=== PATIENT | male | born 1965 | race Caucasian/White ===

== ENCOUNTER 2020-10-18 14:41 | Outpatient (REF) | payer MEDICAID, SELFPAY | END 2020-10-18 14:42 | disposition home or self-care (01) | LOC: HO.LAB 14:41 | PROVIDERS: Visit Provider Internal Medicine | DX: Z20.828 Contact with and (suspected) exposure to other viral communicable diseases (principal) | CPT/HCPCS: C9803; U0003 ==

== ENCOUNTER 2023-02-04 10:04 | Emergency (ER) | payer MEDICAID, SELFPAY ==
[2023-02-04 10:08] VITALS: BP 133/74; PULSE 80; RESP 18; TEMP 36.8; O2SAT 96; BMI 28.8
--- NOTE | 2023-02-04 11:20 | ED_ITS ---
HPI - Abdominal Pain General Chief Complaint: Abdominal Pain Stated Complaint: lower abd pain Time Seen by Provider: 02/04/23 11:19 Source: patient Mode of arrival: ambulatory Limitations: no limitations History of Present Illness HPI narrative: 57 yo male with history of right sided inguinal hernia presents to the ER for evaluation of 1 week of increased pain in his right inguinal area. He states he feels a large bulge come out of his stomach when he stands up. He can lay down and push it back in. He feels better when he has his hand over the area to keep it in. He denies any overlying skin changes. No N/V/D. He has never seen a surgeon for this. His doctor years ago told him about it and he states it wasn't really bothering him until last week. MD elicited complaint: abdominal pain Pertinent past history: other (hernia) Onset (ago): week(s) (1) Pain Consistency: intermittent Location: RLQ Severity: moderate Quality: aching Radiation: other (groin) Migration to: no migration Exacerbating factors: other (standing, coughing, lifting) Relieving factors: rest and other (laying down) Associated symptoms: denies other symptoms Related Data Allergies Allergy/AdvReac Type Severity Reaction Status Date / Time No Known Allergies Allergy Unverified 07/28/20 16:25 Review of Systems Review of Systems Yes all other systems are reviewed and are negative Physical Exam ED Vital Signs: Vital Signs - 24 hr 02/04/23 10:08 Temperature 98.3 F Pulse Rate 80 Respiratory Rate 18 Blood Pressure 133/74 Pulse Oximetry 96 Oxygen Delivery Method Room Air BMI result Body Mass Index 28.8 Appearance: Alert. Oriented X3. No acute distress. Eyes: Pupils equal, round and reactive to light. ENT: Pharynx normal. Neck: Normal inspection. Neck supple. CVS: Normal heart rate and rhythm. Pulses normal. Respiratory: No respiratory distress. Breath sounds normal. Abdomen: Soft and nontender. +BS x4 when laying flat. palpable defect in the right inguinal area. no overlying skin changes. when standing there is a large mass in the right inguinal area. easily reducible Skin: Skin warm and dry. Normal skin color. Normal skin turgor. No rashes. Extremities: No lower extremity edema. Neuro: Oriented X 3. No motor deficit. No sensory deficit. Medical Decision Making Medical Decision Making MDM Narrative: 57-year-old male presents to the ER for evaluation of a right inguinal hernia. The hernia is easily reducible. No evidence of obstruction, strangulation, or incarceration. PE and recommendations c/w patient - he will require outpatient surgery evaluation for elective surgical repair. No emergent need today. patient disappointed as he wanted to get the surgery done today. Explained how the process works along with return precautions. recommended compression shorts, no lifting or strenuous activity. does not want meds. stable for d/c home. Differential Diagnosis Differential Diagnoses: The differential diagnosis associated with the pres entation includes Right inguinal hernia no evidence of incarcerated hernia, strangulated hernia, bowel obstruction. External Record Review External record reviewed: Prior outpatient labs Tests considered The following testing was considered but not selected: CT scan/US of the hernia was considered but not indicated today Prescription Management I considered prescription management with: Pain Medication pt declined Discharge Plan Discharge Clinical Impression: Inguinal hernia of right side without obstruction or gangrene Patient Disposition: Home, Self-Care Instructions: Inguinal Hernia (ED), Inguinal Hernia Repair (DC) Additional Instructions: Call the provided Surgery Office number to arrange a referral for elective hernia repair. Rest. No strenuous activity. No lifting Wear tight compression shorts. If you develop vomiting, inability to reduce the hernia yourself, call your doctor or come back to the ER for further evaluation. If you develop new or worsening symptoms call 911 or come back to the ER for further evaluation. Referrals: [facility] [place] General Surgeons [Provider Group] (right inguinal hernia) Stand Alone Forms: Work/School Release Interventions: ED Discharge Assessment Last Done: 02/04/23 11:58 Discharge Date/Time: 02/04/23 11:59
== END 2023-02-04 11:59 | disposition home or self-care (01) ==
PROVIDERS: Emergency Provider Student in an Organized Health Care Education/Training Program
DX: K40.90 Unilateral inguinal hernia, without obstruction or gangrene, not specified as recurrent (principal)
CPT/HCPCS: 99282

== ENCOUNTER 2023-02-04 12:45 | Emergency (ER) | payer MEDICAID, SELFPAY ==
--- NOTE | ~2023-02-04 | XR_ITS ---
EXAMINATION: XR CHEST CLINICAL INFORMATION: Abdominal pain. COMPARISON: None available. TECHNIQUE: 2 views of the chest were obtained. FINDINGS: No significant abnormality is noted involving the heart, lungs, mediastinum, bony thorax or soft tissues. XR/XR chest 2V IMPRESSION: Unremarkable examination.
--- NOTE | ~2023-02-04 | CT_ITS ---
EXAMINATION: CT ABDOMEN AND PELVIS WITH CONTRAST CLINICAL INFORMATION: Inguinal hernia pain COMPARISON: None available. TECHNIQUE: Multidetector volumetric images were obtained from the superior aspect of the liver through the pubic symphysis following administration 85 mL of Omnipaque 350 intravenous contrast. Sagittal and coronal reformatted images were obtained on the technologist's workstation. Oral contrast: No This CT examination was performed using dose optimization techniques as appropriate, variously including the following: *Automated exposure control *Adjustment of mA and/or kV according to patient size (this includes techniques or standardized protocols for targeted exams where dose is matched to indication/reason for exam; i.e. extremities or head) *Use of iterative reconstruction technique DLP: 602 mGy-cm FINDINGS: Visualized lung bases demonstrate mild dependent atelectasis. The liver demonstrates normal size, contour and attenuation. A few sub-5 mm hepatic hypodensities are too small to accurately characterize. The gallbladder is normal in appearance. The pancreas, spleen and adrenal glands are unremarkable. Symmetrically enhancing kidneys. No hydronephrosis of either kidney. 6 mm hypodense focus within the midpole of the right kidney is too small to accurately characterize. The stomach is decompressed. Normal caliber loops of small and large bowel. Mild colonic diverticulosis without CT evidence to suggest active diverticulitis. Normal appendix. Tiny fat-containing umbilical hernia. Normal caliber abdominal aorta. No retroperitoneal lymphadenopathy. The prostate gland is normal in size. The bladder is normally distended. A portion of the bladder extends into a large right-sided inguinal hernia. There is a moderate left-sided inguinal hernia which contains only fat. A small right posterior bladder diverticulum is also noted. There is no gross free pelvic fluid. No inguinal lymphadenopathy. Mild degenerative changes of the spine. CT/CT abdomen pelvis w IV con IMPRESSION: 1. A portion of the bladder extends into a large right-sided inguinal hernia. There is a moderate left-sided inguinal hernia which contains only fat. 2. Mild colonic diverticulosis without CT evidence to suggest active diverticulitis. Fleischner guidelines were followed.
[2023-02-04 13:17] VITALS: BP 116/69; PULSE 69; RESP 16; TEMP 36.9; O2SAT 98; BMI 28.8
--- NOTE | 2023-02-04 13:25 | ED.GENADULT ---
HPI - General Adult General Chief complaint: General Medical <DEEDEE Donovan - Last Filed: 02/17/23 12:43> Stated complaint: nausea <DEEDEE Donovan - Last Filed: 02/17/23 12:43> Time Seen by Provider: 02/04/23 13:43 <DEEDEE Donovan - Last Filed: 02/17/23 12:43> Source: patient <Frederick Garcia MD - Last Filed: 02/04/23 17:54> Mode of arrival: ambulatory <Frederick Garcia MD - Last Filed: 02/04/23 17:54> Limitations: no limitations <Frederick Garcia MD - Last Filed: 02/04/23 17:54> History of Present Illness HPI narrative: 57-year-old male presents with right inguinal hernia. This has been going on for at least a year. Over the past few days, patient has had significant pain. The pain does not radiate. Is worse with palpation and movement. It is associated with nausea, no vomiting. He reports reduced stooling flatus today. Patient has been able to reduce on his own hernia that he knows present but today it pops right back out. As far as the pain goes, is achy. Does not radiate. It is constant. No fevers or chills. No urinary complaints. <Frederick Garcia MD - Last Filed: 02/04/23 17:54> Related Data Home medications: Previous Rx's Medication Instructions Recorded ondansetron 4 mg disintegrating 4 mg PO Q8H PRN nausea and 02/04/23 tablet vomiting #10 tabs acetaminophen 300 mg-codeine 15 mg 1 tab PO Q4H PRN pain (scale score 02/08/23 tablet 7-10) #26 tabs docusate sodium 100 mg capsule 100 mg PO BID PRN constipation #30 02/08/23 (Colace) caps <DEEDEE Donovan - Last Filed: 02/17/23 12:43> Allergies/adverse reactions: Allergies Allergy/AdvReac Type Severity Reaction Status Date / Time No Known Allergies Allergy Unverified 02/05/23 09:25 <DEEDEE Donovan - Last Filed: 02/17/23 12:43> FOR[facility]LY [facility] Past Medical History Surgical History: Surgical History (Updated 02/05/23 @ 09:44 by Shukri Munoz MD) Hx of tonsillectomy <DEEDEE Donovan - Last Filed: 02/17/23 12:43> Family History Family History: Family History (Updated 02/05/23 @ 09:26 by RASHAD Cheatham) Father Colon cancer <DEEDEE Donovan - Last Filed: 02/17/23 12:43> Social History Social History: Social History (Updated 02/05/23 @ 09:27 by RASHAD Cheatham) Alcohol intake: former Patient Tobacco Use Status: Former Tobacco user <DEEDEE Donovan - Last Filed: 02/17/23 12:43> Physical Exam ED Vital Signs: Vital Signs - 24 hr 02/04/23 13:17 Temperature 98.5 F Pulse Rate 69 Respiratory Rate 16 Blood Pressure 116/69 Pulse Oximetry 98 BMI result Body Mass Index 28.8 <DEEDEE Donovan - Last Filed: 02/17/23 12:43> Vital Signs - 24 hr 02/04/23 13:17 Temperature 98.5 F Pulse Rate 69 Respiratory Rate 16 Blood Pressure 116/69 Pulse Oximetry 98 BMI result Body Mass Index 28.8 <Frederick Garcia MD - Last Filed: 02/04/23 17:54> GEN: Well developed, no acute distress, alert, oriented HEENT: Normocephalic, atraumatic, normal external ears, nose appears normal, no oropharyngeal edema or exudates Eyes: Normal to appearance Neck: Supple, no lymphadenopathy Respiratory: Talks in complete sentences, no respiratory distress, clear to auscultation bilaterally Cardiovascular: Regular rate and rhythm, no murmurs rubs or gallops Abdomen: Soft, right inguinal hernia, reducible but returns immediately thereafter, tender to palpation, abdominal distension is mild with generalized tenderness no rebound or guarding Back: No CVA tenderness Extremities: No clubbing cyanosis or edema Neurologic: No focal neurologic deficits, cranial nerves 2-12 intact, strength is 5/5 bilaterally, gait normal Skin: No rash <Frederick Garcia MD - Last Filed: 02/04/23 17:54> Course Course Course Narrative: RME: 57-year-old male presents to the ED for right inguinal hernia pain. Patient was seen earlier today and was self reduced, but come back to the ER saying hernia came back out and now is painful. Patient will be re-evaluated [facility]. Could not assess inguinal area in triage. <DEEDEE Donovan - Last Filed: 02/17/23 12:43> Reevaluation(s) Reevaluation #1: Patient's hernia has returned. I attempted to reducing in the emergency department. I was able to successfully reduce it but it immediately popped back out. Is quite tender to palpation. His abdomen is mildly tender. Will obtain imaging studies, laboratory analysis. We discussed pain management. Patient may require surgical evaluation today. <Frederick Garcia MD - Last Filed: 02/04/23 17:54> Time: 14:16 <Frederick Garcia MD - Last Filed: 02/04/23 17:54> Reevaluation #2: Contacted Dr. Munoz, has appointment tomorrow. Preop work mostly complete. Patient comfortable with plan. <Frederick Garcia MD - Last Filed: 02/04/23 17:54> Time: 17:53 <Frederick Garcia MD - Last Filed: 02/04/23 17:54> Medications Administered Discontinued Medications Generic Name Dose Route Start Last Admin Trade Name Freq PRN Reason Stop Dose Admin Sodium Chloride 1,000 mls @ 999 mls/hr 02/04/23 14:15 02/04/23 15:19 Ns IV 02/04/23 15:15 Infused .Q1H1M WILL Infusion Iohexol 100 ml 02/04/23 15:09 02/04/23 15:09 Iohexol 350 Mg/Ml 100 Ml Infus..Btl IV 02/04/23 15:10 85 ml ONCE ONE Administration Ondansetron HCl 4 mg 02/04/23 13:57 02/04/23 14:07 Ondansetron Odt 4 Mg Tab.Rapdis TRANSLINGU 02/04/23 13:58 4 mg ONCE ONE Administration <DEEDEE Donovan - Last Filed: 02/17/23 12:43> Medications Administered Discontinued Medications Generic Name Dose Route Start Last Admin Trade Name Freq PRN Reason Stop Dose Admin Sodium Chloride 1,000 mls @ 999 mls/hr 02/04/23 14:15 02/04/23 15:19 Ns IV 02/04/23 15:15 Infused .Q1H1M WILL Infusion Iohexol 100 ml 02/04/23 15:09 02/04/23 15:09 Iohexol 350 Mg/Ml 100 Ml Infus..Btl IV 02/04/23 15:10 85 ml ONCE ONE Administration Ondansetron HCl 4 mg 02/04/23 13:57 02/04/23 14:07 Ondansetron Odt 4 Mg Tab.Rapdis TRANSLINGU 02/04/23 13:58 4 mg ONCE ONE Administration <Frederick Garcia MD - Last Filed: 02/04/23 17:54> Medical Decision Making Medical Decision Making MDM Narrative: 57-year-old male presents with a right inguinal mass consistent with her hernia. Patient has been intermittently able to reduce it however, in the emergency department, immediately popped back out is quite tender to palpation. Will obtain mid imaging studies, laboratory analysis. Patient will be NPO possible surgery may be indicated depending on findings. <Frederick Gacria MD - Last Filed: 02/04/23 17:54> Differential Diagnosis Differential Diagnoses: The differential diagnosis associated with the presentation includes (Hernia, incarcerated hernia, strangulated hernia) <Frederick Garcia MD - Last Filed: 02/04/23 17:54> inguinal hernia <Frederick Garcia MD - Last Filed: 02/04/23 17:54> Lab Data [facility] Lab Attestation statement: I reviewed the patient's lab results. <Frederick Garcia MD - Last Filed: 02/04/23 17:54> Result Diagrams: 02/04/23 13:55 02/04/23 13:55 <DEEDEE Donovan - Last Filed: 02/17/23 12:43> Labs: Lab Results 02/04/23 02/04/23 02/04/23 Range/Units 13:55 13:55 14:03 WBC 7.2 (4.8-10.8) X10*3/uL RBC 5.33 (4.60-5.80) X10*6/uL Hgb 15.0 (14.0-18.0) g/dl Hct 44.6 (42.0-52.0) % MCV 83.7 (80.0-98.0) fL MCH 28.1 (27.0-33.0) pg MCHC 33.6 (31.0-36.0) g/dl RDW 13.1 (11.0-16.0) % Plt Count 266 (160-400) X10*3/uL MPV 8.6 L (9.4-12.4) fL Immature Gran % (Auto) 0.4 (0.0-0.4) % Neut % (Auto) 46.9 (45-73) % Lymph % (Auto) 40.8 H (20-40) % [place] % (Auto) 9.2 (2-11) % Eos % (Auto) 2.4 (0-4) % Baso % (Auto) 0.3 (0-2) % Lymph # (Auto) 2.9 (1.2-4.9) X10*3/uL [place] # (Auto) 0.7 (0.1-1.2) X10*3/uL Eos # (Auto) 0.2 (0.0-0.4) X10*3/uL Baso # (Auto) 0.0 (0.0-0.2) X10*3/uL Abs Immat Gran (auto) 0.03 (0.00-0.03) X10*3/uL Absolute Neuts (auto) 3.4 (2.0-8.3) x10*3/uL Absolute Nucleated RBC 0.000 (0.0-0.012) X10*3/uL Nucleated RBC % (auto) 0.0 (0.0-0.2) /100WBC Sodium 140 (135-145) mmol/L Potassium 4.9 (3.3-5.1) mmol/L Chloride 107 (96-108) mmol/L Carbon Dioxide 26 (22-29) mmol/L Anion Gap 12 (12-20) BUN 12 (9-16) mg/dL Creatinine 0.98 (0.5-1.4) mg/dL Estim Creat Clear Calc 89.8 Estimated GFR > 60 Random Glucose 88 (60-115) mg/dL Calcium 9.2 (8.4-10.2) mg/dL Total Bilirubin 1.1 H (0.0-1.0) mg/dL AST 19 (5-37) U/L ALT 17 (0-40) U/L Alkaline Phosphatase 72 (39-117) U/L Total Protein 7.6 (6.5-8.0) g/dL Albumin 4.4 (3.5-5.0) g/dL COVID-19 ([facility]) Negative (Negative) COVID-19 Clin Com See Note Blood Type Antibody Screen 02/04/23 Range/Units 16:01 WBC (4.8-10.8) X10*3/uL RBC (4.60-5.80) X10*6/uL Hgb (14.0-18.0) g/dl Hct (42.0-52.0) % MCV (80.0-98.0) fL MCH (27.0-33.0) pg MCHC (31.0-36.0) g/dl RDW (11.0-16.0) % Plt Count (160-400) X10*3/uL MPV (9.4-12.4) fL Immature Gran % (Auto) (0.0-0.4) % Neut % (Auto) (45-73) % Lymph % (Auto) (20-40) % [place] % (Auto) (2-11) % Eos % (Auto) (0-4) % Baso % (Auto) (0-2) % Lymph # (Auto) (1.2-4.9) X10*3/uL [place] # (Auto) (0.1-1.2) X10*3/uL Eos # (Auto) (0.0-0.4) X10*3/uL Baso # (Auto) (0.0-0.2) X10*3/uL Abs Immat Gran (auto) (0.00-0.03) X10*3/uL Absolute Neuts (auto) (2.0-8.3) x10*3/uL Absolute Nucleated RBC (0.0-0.012) X10*3/uL Nucleated RBC % (auto) (0.0-0.2) /100WBC Sodium (135-145) mmol/L Potassium (3.3-5.1) mmol/L Chloride (96-108) mmol/L Carbon Dioxide (22-29) mmol/L Anion Gap (12-20) BUN (9-16) mg/dL Creatinine (0.5-1.4) mg/dL Estim Creat Clear Calc Estimated GFR Random Glucose (60-115) mg/dL Calcium (8.4-10.2) mg/dL Total Bilirubin (0.0-1.0) mg/dL AST (5-37) U/L ALT (0-40) U/L Alkaline Phosphatase (39-117) U/L Total Protein (6.5-8.0) g/dL Albumin (3.5-5.0) g/dL COVID-19 ([facility]) (Negative) COVID-19 Clin Com Blood Type B Negative Antibody Screen NEGATIVE <DEEDEE Donovan - Last Filed: 02/17/23 12:43> Lab Results 02/04/23 02/04/23 02/04/23 Range/Units 13:55 13:55 14:03 WBC 7.2 (4.8-10.8) X10*3/uL RBC 5.33 (4.60-5.80) X10*6/uL Hgb 15.0 (14.0-18.0) g/dl Hct 44.6 (42.0-52.0) % MCV 83.7 (80.0-98.0) fL MCH 28.1 (27.0-33.0) pg MCHC 33.6 (31.0-36.0) g/dl RDW 13.1 (11.0-16.0) % Plt Count 266 (160-400) X10*3/uL MPV 8.6 L (9.4-12.4) fL Immature Gran % (Auto) 0.4 (0.0-0.4) % Neut % (Auto) 46.9 (45-73) % Lymph % (Auto) 40.8 H (20-40) % [place] % (Auto) 9.2 (2-11) % Eos % (Auto) 2.4 (0-4) % Baso % (Auto) 0.3 (0-2) % Lymph # (Auto) 2.9 (1.2-4.9) X10*3/uL [place] # (Auto) 0.7 (0.1-1.2) X10*3/uL Eos # (Auto) 0.2 (0.0-0.4) X10*3/uL Baso # (Auto) 0.0 (0.0-0.2) X10*3/uL Abs Immat Gran (auto) 0.03 (0.00-0.03) X10*3/uL Absolute Neuts (auto) 3.4 (2.0-8.3) x10*3/uL Absolute Nucleated RBC 0.000 (0.0-0.012) X10*3/uL Nucleated RBC % (auto) 0.0 (0.0-0.2) /100WBC Sodium 140 (135-145) mmol/L Potassium 4.9 (3.3-5.1) mmol/L Chloride 107 (96-108) mmol/L Carbon Dioxide 26 (22-29) mmol/L Anion Gap 12 (12-20) BUN 12 (9-16) mg/dL Creatinine 0.98 (0.5-1.4) mg/dL Estim Creat Clear Calc 89.8 Estimated GFR > 60 Random Glucose 88 (60-115) mg/dL Calcium 9.2 (8.4-10.2) mg/dL Total Bilirubin 1.1 H (0.0-1.0) mg/dL AST 19 (5-37) U/L ALT 17 (0-40) U/L Alkaline Phosphatase 72 (39-117) U/L Total Protein 7.6 (6.5-8.0) g/dL Albumin 4.4 (3.5-5.0) g/dL COVID-19 ([facility]) Negative (Negative) COVID-19 Clin Com See Note Blood Type Antibody Screen 02/04/23 Range/Units 16:01 WBC (4.8-10.8) X10*3/uL RBC (4.60-5.80) X10*6/uL Hgb (14.0-18.0) g/dl Hct (42.0-52.0) % MCV (80.0-98.0) fL MCH (27.0-33.0) pg MCHC (31.0-36.0) g/dl RDW (11.0-16.0) % Plt Count (160-400) X10*3/uL MPV (9.4-12.4) fL Immature Gran % (Auto) (0.0-0.4) % Neut % (Auto) (45-73) % Lymph % (Auto) (20-40) % [place] % (Auto) (2-11) % Eos % (Auto) (0-4) % Baso % (Auto) (0-2) % Lymph # (Auto) (1.2-4.9) X10*3/uL [place] # (Auto) (0.1-1.2) X10*3/uL Eos # (Auto) (0.0-0.4) X10*3/uL Baso # (Auto) (0.0-0.2) X10*3/uL Abs Immat Gran (auto) (0.00-0.03) X10*3/uL Absolute Neuts (auto) (2.0-8.3) x10*3/uL Absolute Nucleated RBC (0.0-0.012) X10*3/uL Nucleated RBC % (auto) (0.0-0.2) /100WBC Sodium (135-145) mmol/L Potassium (3.3-5.1) mmol/L Chloride (96-108) mmol/L Carbon Dioxide (22-29) mmol/L Anion Gap (12-20) BUN (9-16) mg/dL Creatinine (0.5-1.4) mg/dL Estim Creat Clear Calc Estimated GFR Random Glucose (60-115) mg/dL Calcium (8.4-10.2) mg/dL Total Bilirubin (0.0-1.0) mg/dL AST (5-37) U/L ALT (0-40) U/L Alkaline Phosphatase (39-117) U/L Total Protein (6.5-8.0) g/dL Albumin (3.5-5.0) g/dL COVID-19 ([facility]) (Negative) COVID-19 Clin Com Blood Type B Negative Antibody Screen NEGATIVE <Frederick Garcia MD - Last Filed: 02/04/23 17:54> Independent Interpretation I performed an independent interpretation of an: EKG (Sinus bradycardia heart rate 57, normal intervals, no acute ST elevations depressions, T-wave inversion in lead 3), Plain X-Ray (No acute cardiopulmonary disease) and CT Scan (no obstruction, large right inguinal hernia) <Frederick Garcia MD - Last Filed: 02/04/23 17:54> Radiology Impression Discussion of test interpretation with radiology: I have reviewed the radiologist's reading. <Frederick Garcia MD - Last Filed: 02/04/23 17:54> Prescription Management I considered prescription management with: Pain Medication <Frederick Garcia MD - Last Filed: 02/04/23 17:54> Discharge Plan Discharge Clinical Impression: Hernia, inguinal, right <DEEDEE Donovan - Last Filed: 02/17/23 12:43> Patient Disposition: Home, Self-Care <DEEDEE Donovan Last Filed: 02/17/23 12:43> Instructions: Inguinal Hernia (ED) <DEEDEE Donovan Last Filed: 02/17/23 12:43> Additional Instructions: for pain, tylenol (acetaminophen) 1000 mg every 6 hours as needed for pain, ice <DEEDEE Donovan - Last Filed: 02/17/23 12:43> Prescriptions: New ondansetron 4 mg tablet,disintegrating 4 mg PO Q8H PRN (Reason: nausea and vomiting) Qty: 10 0RF No Action acetaminophen-codeine 300-15 mg tablet 1 tab PO Q4H PRN (Reason: pain (scale score 7-10)) Qty: 26 0RF Rx Instructions: Partial fill upon request. Take 1-2 tablets every 4-6 hours as needed for pain. docusate sodium [Colace] 100 mg capsule 100 mg PO BID PRN (Reason: constipation) Qty: 30 0RF <DEEDEE Donovan - Last Filed: 02/17/23 12:43> Referrals: Shukri Munzo MD [Physician] - 1 day <DEEDEE Donovan - Last Filed: 02/17/23 12:43> Interventions: ED Discharge Assessment Last Done: 02/04/23 18:02 <DEEDEE Donovan Last Filed: 02/17/23 12:43> Discharge Date/Time: 02/04/23 18:03 <DEEDEE Donovan Last Filed: 02/17/23 12:43>
--- NOTE | 2023-02-04 13:57 | ECG_ITS ---
Test Reason : CP Blood Pressure : / mmHG Vent. Rate : 057 BPM Atrial Rate : 057 BPM P-R Int : 126 ms QRS Dur : 086 ms QT Int : 382 ms P-R-T Axes : 000 052 014 degrees QTc Int : 371 ms Sinus bradycardia Otherwise normal ECG No previous ECGs available Referred By: Frederick Garcia Electronically Signed By:BLACK MONTELONGO
[2023-02-04] MEDS: Ondansetron ODT 4 MG TAB.RAPDIS TRANSLINGU (14:07)
[2023-02-04] MEDS: 0.9 % Sodium Chloride 1,000 ML 999 ML IV (14:24)
[2023-02-04 14:33] LABS: MANUAL DIFF FLAG NO
[2023-02-04 14:37] LABS: Hematocrit 44.6 % (42.0-52.0); Mean Corpuscular HGB Conc 33.6 g/dl (31.0-36.0); Mean Corpuscular Hemoglobin 28.1 pg (27.0-33.0); Mean Corpuscular Volume 83.7 fL (80.0-98.0); Mean Platelet Volume 8.6 fL (9.4-12.4); Neutrophils Percent Auto 46.9 % (45-73); Platelet Count 266 X10*3/uL (160-400); Red Blood Count 5.33 X10*6/uL (4.60-5.80); Red Cell Distribution Width 13.1 % (11.0-16.0); White Blood Count 7.2 X10*3/uL (4.8-10.8)
[2023-02-04 14:38] LABS: Basophils Percent Auto 0.3 % (0-2); Eosinophils Absolute Auto 0.2 X10*3/uL (0.0-0.4); Eosinophils Percent Auto 2.4 % (0-4); Imm Gran Abs Auto 0.03 X10*3/uL (0.00-0.03); Imm Gran Pct Auto 0.4 % (0.0-0.4); Lymphocytes Absolute Auto 2.9 X10*3/uL (1.2-4.9); Lymphocytes Percent Auto 40.8 % (20-40); Monocytes Absolute Auto 0.7 X10*3/uL (0.1-1.2); Monocytes Percent Auto 9.2 % (2-11); Neutrophils Absolute Auto 3.4 x10*3/uL (2.0-8.3)
[2023-02-04 14:49] LABS: COVID-19 Test Negative (Negative); IDNOW Serial# 9DB6401D
[2023-02-04 14:50] LABS: Alanine Aminotransferase 17 U/L (0-40); Albumin Level 4.4 g/dL (3.5-5.0); Alkaline Phosphatase 72 U/L (39-117); Anion Gap 12 (12-20); Aspartate Amino Transferase 19 U/L (5-37); Bilirubin Total 1.1 mg/dL (0.0-1.0); Blood Urea Nitrogen 12 mg/dL (9-16); Calcium 9.2 mg/dL (8.4-10.2); Carbon Dioxide 26 mmol/L (22-29); Chloride 107 mmol/L (96-108); Creatinine Clr Calc Pharmacy 89.8; Estimated Glomerular Filt Rate > 60; Glucose Random 88 mg/dL (60-115); Potassium 4.9 mmol/L (3.3-5.1); Sodium 140 mmol/L (135-145); Total Protein 7.6 g/dL (6.5-8.0)
[2023-02-04] MEDS: iohexoL 350 MG/ML 100 ML INFUS..BTL IV (15:09)
== END 2023-02-04 18:03 | disposition home or self-care (01) ==
PROVIDERS: Emergency Provider Emergency Medicine
DX: K40.90 Unilateral inguinal hernia, without obstruction or gangrene, not specified as recurrent (principal); R07.89 Other chest pain; R10.9 Unspecified abdominal pain; Z20.822 Contact with and (suspected) exposure to COVID-19; Z20.828 Contact with and (suspected) exposure to other viral communicable diseases; Z79.899 Other long term (current) drug therapy
CPT/HCPCS: 71046; 74177; 80053; 85025; 86850; 86900; 86901; 87635; 93005; 96360; 99284; Q9967

== ENCOUNTER → 2023-02-05 09:13 | Outpatient (BNVA) | payer MEDICAID, SELFPAY | PROVIDERS: Visit Provider Surgery | DX: K40.30 Unilateral inguinal hernia, with obstruction, without gangrene, not specified as recurrent (principal) | CPT/HCPCS: 99202 ==

== ENCOUNTER 2023-02-08 08:42 | Day surgery (SDC) | payer MEDICAID, SELFPAY ==
--- NOTE | 2023-02-07 10:25 | HO.ANESPROP2 ---
Documented by User: Leighann Lainez NP 02/07/23 10:27 HPI - Anesthesia Eval Consult details Narrative: 57yo M for Right Hernia Repair Inguinal with mesh PMFSH Active Problems Active Problems: All Active Problems (Updated 02/05/23 @ 09:44 by Shukri Munoz MD) Incarcerated right inguinal hernia (Acute) Family History Family History (Updated 02/05/23 @ 09:26 by RASHAD Cheatham) Father Colon cancer Surgical History Surgical History (Updated 02/05/23 @ 09:44 by Shukri Munoz MD) Hx of tonsillectomy Social History Social History (Updated 02/05/23 @ 09:27 by RASHAD Cheatham) Alcohol intake: former Patient Tobacco Use Status: Former Tobacco user Are you DNR?: No Advance Directives: No Advance Directives Information Provided: Yes Nutrition Risks: No Nutritional Risk Meds Allergies Allergy/AdvReac Type Severity Reaction Status Date / Time No Known Allergies Allergy Unverified 02/05/23 09:25 Active Medications: Current Medications Cefazolin Sodium/Dextrose (Ancef) 2 gm in 50 mls @ 100 mls/hr IV PREOP ONE Stop: 02/07/23 10:37 Exam Exam Date and Time: February 07, 2023 1025 Pertinent Lab Results Pertinent Lab Results: Laboratory Tests 02/04/23 02/04/23 13:55 13:55 WBC 7.2 Hgb 15.0 Hct 44.6 Plt Count 266 Sodium 140 Potassium 4.9 Chloride 107 Carbon Dioxide 26 BUN 12 Creatinine 0.98 Narrative Narrative: EKG 01/2023 Vent. Rate : 057 BPM ? ? Atrial Rate : 057 BPM ?? P-R Int : 126 ms? QRS Dur : 086 ms ? ? QT Int : 382 ms ? ? ? P-R-T Axes : 000 052 014 degrees ?? QTc Int : 371 ms ? Sinus bradycardia Otherwise normal ECG No previous ECGs available ? Assessment and Plan Assessment Anesthesia Assessment: Chart Reviewed Documented by User: Thomas Mccracken MD 02/08/23 09:24 PMFSH Family History Family History (Updated 02/05/23 @ 09:26 by RASHAD Cheatham) Father Colon cancer Family history of problems with anesthesia: No Surgical History Surgical History (Updated 02/05/23 @ 09:44 by Shukri Munoz MD) Hx of tonsillectomy History of Problems with Anesthesia: No Social History Social History (Updated 02/05/23 @ 09:27 by RASHAD Cheatham) Alcohol intake: former Patient Tobacco Use Status: Former Tobacco user Are you DNR?: No Advance Directives: No Advance Directives Information Provided: Yes Nutrition Risks: No Nutritional Risk Meds Allergies Allergy/AdvReac Type Severity Reaction Status Date / Time No Known Allergies Allergy Unverified 02/05/23 09:25 Exam Airway Mallampati Class: II TM Dist: >3cm Neck ROM: Full Heart: rrr Lungs: cta Assessment and Plan Final Anesthetic Review Family History of Problems with Anesthesia: No History of Problems with Anesthesia: No NPO: Yes ASA Class: II Final Preanesthetic Review: No Changes in Pt Med Stat, Meds/Allgs Chart Reviewed, Consent Obtained/Reviewed and Anes Risks/Benef Reviewed Patient Risk: Intermediate Procedure Risk: Low Anesthetic Plan Anesthetic Plan: GA Disposition: Standard PACU
[2023-02-08] VITALS (12 sets, daily range): BP systolic 110–173; BP diastolic 62–113; PULSE 65–78; RESP 16–20; TEMP 36.3–36.6; O2SAT 94–100; BMI 29.0
--- NOTE | 2023-02-08 08:36 | MHC.SHP ---
Pre-Procedural Eval Section A Date of Service: 02/08/23 The patient is an INPATIENT: No Changes since office visit: No Cold of Flu in the past 2 weeks, No New Medical Problems, No Changes in Medication and No Patient answered all questions Section B Chief Complaint: Unilateral inguinal hernia, with obstruction, with Allergies: Allergies Allergy/AdvReac Type Severity Reaction Status Date / Time No Known Allergies Allergy Unverified 02/05/23 09:25 Plan I have reviewed the history and physical and performed a pertinent physical examination on my patient. No changes have occurred unless specified. Time Spent With Patient Time: Total time managing care of this patient today ____ minutes.
[2023-02-08] MEDS: Lactated Ringers 1,000 ML 100 ML IVCONT (09:11)
--- NOTE | 2023-02-08 11:28 | P.OP_ITS ---
Operative Note Operative Note Date of Service: 02/08/23 Narrative: Preoperative diagnosis: [] complete/scrotal incarcerated right inguinal hernia Postop diagnosis: [] same Procedure [] repair incarcerated right inguinal complete/scrotal hernia Surgeon: [] Alexander Account Underwriter: [] Trisha MARK Type of Anesthesia: [] general Indication for surgery: [] symptomatic scrotal/ complete irreducible/incarcerated right inguinal hernia Findings: [] massive indirect incarcerated right inguinal hernia extending into the scrotum with omental contents in the hernia sac. Patient is brought to the operating room, placed on the operating table in a supine position, and after an adequate level of general anesthesia was induced, the right groin and scrotum were prepped and draped in usual sterile fashion. Using a small right para- Inguinal incision, this carried down through skin, subcutaneous tissue, Makayla's fascia. External oblique fascia was opened in direction of its fibers using Metzenbaum scissors, with care to isolate and preserve the ilioinguinal nerve throughout the procedure. the spermatic cord was identified and was quite massive in size secondary to the indirect hernia which extended into the scrotum. This was encircled and hernia tape placed. The hernia sac was brought onto the field and from the scrotum and spermatic cord using combination of blunt and sharp dissection.There was marked cicatrization and scarring secondary to chronicity of the hernia in the Scrotum. Once the indirect hernia sac was finally from the cord, the indirect hernia sac was reduced. No Direct hernia was demonstrated. . An extra-large plug was placed in the hernia defect and sutured inferiorly to the inguinal ligament and superiorly To the transversalis fascia using Interrupted 0 tycron sutures. Hernia mesh covered inguinal floor completely as well as thei ndirect hernia defect. The wound was irrigated, secured hemostasis, and closed in the following manner; external oblique fascia was were closed using running 2-0 Vicryl suture. Makayla's fascia was reapproximated using up to 3-0 Vicryl sutures. Interrupted inverted deep dermal 3-0 Vicryl sutures followed by running subcuticular 4-0 Vicryl sutures were placed. Steri- Strips and sterile dressings were applied. Wound was infiltrated with 0.5% Marcaine at completion. Ipsi- lateral testicle was intrascrotal at the end of the procedure. Sponge, needle, and instrument counts were reported to be correct. Patient tolerated the procedure well and emerged from anesthesia stable condition. EBL minimal
[2023-02-08] MEDS: Acetaminophen 325 MG TABLET 650 MG PO (12:36)
[2023-02-08] MEDS: oxyCODONE HCl Immed Release 5 MG TABLET PO (12:36)
[2023-02-08] MEDS: fentaNYL citrate/PF 100 MCG/2 ML VIAL 25 MCG IVPUSH ×2 (12:38→12:43)
--- NOTE | 2023-02-08 12:41 | HO.POSTANES ---
Post Anesthesia Evaluation Post Anesthesia Evaluation Vital Signs: Vital Signs Temp Pulse Resp BP Pulse Ox O2 Del Method O2 Flow Rate 02/08/23 12:18 75 18 163/103 H 100 Simple Mask 6 02/08/23 12:03 70 18 161/92 H 100 Simple Mask 8 02/08/23 11:48 72 18 146/93 H 100 Simple Mask 8 02/08/23 11:44 75 18 152/90 H 100 Simple Mask 8 02/08/23 11:39 73 18 138/90 H 100 Simple Mask 8 02/08/23 11:34 97.3 F 78 20 144/84 H 100 Simple Mask 8 02/08/23 09:19 97.8 F 77 18 110/62 96 Room Air Anesthesia: General Endotracheal-GETA Mental Status: Awake Pain Control: Satisfactory Nausea/Vomiting: Mild Hydration: Adequate Anesthesia-Related Issues: No Anes. Related Issues
== END 2023-02-08 13:57 | disposition home or self-care (01) ==
PROVIDERS: Visit Provider Surgery
PROC: (CPT 49507; principal; 2023-02-08 10:20)
DX: K40.30 Unilateral inguinal hernia, with obstruction, without gangrene, not specified as recurrent (principal); Z79.899 Other long term (current) drug therapy
CPT/HCPCS: 49507; C1781; J0690; J1100; J1170; J2250; J2405; J3010

== ENCOUNTER → 2023-02-26 13:38 | Outpatient (BNVA) | payer MEDICAID, SELFPAY | PROVIDERS: Visit Provider Surgery ==